=== PATIENT | female | born 1945 | race Caucasian/White ===

== ENCOUNTER 2023-09-10 09:02 | Outpatient (CLI) | payer MEDICARE, SELFPAY ==
--- NOTE | ~2023-09-10 | CT_ITS ---
Noncontrast CT scan of the lumbar spine CLINICAL HISTORY: Spinal stenosis TECHNIQUE: Axial noncontrast imaging of the lumbar spine was performed. Sagittal and coronal reformat aubrey images were constructed. Dose reduction technique was used on this scan by utilizing automated ex posure control and iterative reconstruction technique. The dose-length product (DLP) was 870.59 mGy-c m. FINDINGS: There is posterior fusion hardware extending from L2 through S1, with bilateral rods and tr anspedicular screws present. There is extensive fusion across the facet joints. There is posterior de compression at L4 and L5. There is moderate degenerative disc narrowing at L3-L4, and L1-L2. At L1-L2, there is disc bulge with severe facet arthropathy. There is moderate central canal stenosis /thecal sac compression with probable severe bilateral neural foraminal narrowing. At L2-L3, there is facet arthropathy. No definite canal stenosis. There is probable mild bilateral ne ural foraminal narrowing. At L3-L4, there is no definite canal stenosis. There is probable moderate to advanced right neural fo raminal narrowing, and moderate left neural foraminal narrowing. At L4-L5, there is no definite canal stenosis. There is probable moderate to severe left neural miguel a inal narrowing, and moderate right neural foraminal narrowing. At L5-S1, there is no definite canal stenosis. There is probable moderate bilateral neural foraminal narrowing, right worse than left. Paravertebral soft tissues are unremarkable, aside from expected postoperative changes. Impression: Posterior fusion from L2 through S1, with associated facet effusion and posterior decompression at th e lower lumbar spine, as detailed above. Moderate degenerative spondylosis, as above. Reviewed, dictated and finalized at location M. HAND Impression: Posterior fusion from L2 through S1, with associated facet effusion and posteri or decompression at the lower lumbar spine, as detailed above. Moderate degenerative spondylosis, as above.
== END 2023-09-10 09:03 | disposition home or self-care (01) ==
PROVIDERS: PCP Family Medicine; Visit Provider Orthopaedic Surgery
DX: M48.061 Spinal stenosis, lumbar region without neurogenic claudication (principal); M43.27 Fusion of spine, lumbosacral region; M43.06 Spondylolysis, lumbar region; M47.817 Spondylosis without myelopathy or radiculopathy, lumbosacral region
CPT/HCPCS: 72131